=== PATIENT | male | born 1985 | race African-American/Black ===

== ENCOUNTER 2024-07-05 18:56 | Inpatient (IN) | payer BC, OTHER ==
--- OUTSIDE RECORDS SUMMARY | 2024-07-05 18:58 | XMS REPORT | Continuity of Care Document ---
Author Name Unknown Address [address] [facility] [address] [place] [address] [facility] Address [address] [facility] 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 Name Role Phone No, PCP Attending Clinician Unavailable Linda Alcocer Attending Clinician Monica vailable Physician, No Primary or Family Admitting Clinic carolyn Unavailable Payers Payer Name Policy Type Policy Number Effective Date Expirati on Date Source [employer]IG[employer] 53 [id number] [facility] Problems Condition Name Condition Details Condition Category Status Onset Date Resolution Date Last Treatment Date Treating Clinician Comments Source [id number] Type 2 diabetes mellitus with hyperglyce keri, without long-term current use of insulin Problem [facility] [id number] Essential (primary) hypertensi on Problem [facility] [id number] Mixed hyperlipid emia Problem [facility] Hyperglyce keri due to type 2 diabetes mellitus Type 2 diabetes mellitus with hyperglyce keri Problem [facility] Allergies, Adverse Reactions, Alerts Allergy Name Allergy Type Status Severity Reaction(s) Onset Date Inactive Date Treating Clinician Comments Source No Known Allergie s DA Active U 08-03 00:00: 00 [facility] Social History Social Habit Start Date Stop Date Quantity Comments Source History of Tobacco Use Current Smoker [facility] Sex Assigned At [facility] Smoking Status Start Date Stop Date Source Current Smoker 2024-02-05 00:00:00 [facility] Medications Ordered Medication Name Filled Medication Name Start Date Stop Date Current Medication? Ordering Clinician Indication Dosage Frequency Signature (SIG) Comments Components Source Lisinopril 40 MG Lisinopril 40 MG 02-05 00:00: 00 No 1{table t} QD Lisinopril 40 MG Blood Glucose Monitor System w/Device Blood Glucose Monitor System w/Device 12-22 00:00: 00 No Blood Glucose Monitor System w/Device Blood Glucose Test Strips 333 - Blood Glucose Test Strips 333 - 3-0 12-22 00:00: 00 No TID Blood Glucose Test Strips 333 - metFORMIN HCl 500 MG metFORMIN HCl 500 MG 12-22 00:00: 00 No 1{table t_with_ a_meal} BID metFORMIN HCl 500 MG Lancets - Lancets - 12-22 00:00: 00 No Lancets - Lisinopril 10 MG Lisinopril 10 MG No 1{table t} QD Lisinopril 10 MG Lisinopril- hydroCHLORO thiazide 20-12.5 MG Lisinopril- hydroCHLORO thiazide 20-12.5 MG No 1{table t} QD Lisinopril -hydroCHLO ROthiazide 20-12.5 MG metFORMIN HCl ER 500 MG metFORMIN HCl ER 500 MG No 1{table t_with_ evening _meal} QD metFORMIN HCl ER 500 MG Vital Signs Vital Name Observation Time Observation Value Comments S ource height 2024-02-06 13:15:00 65 [in_i] [facility] weight-kg 2024-02-06 13:15:00 80.74 kg [facility] bmi 2024-02-06 13:15:00 29.62 kg/m2 Elisa r [facility] temperature 2024-02-06 13:15:00 98.8 [degF] [facility] respiratory rate 2024-02-06 13:15:00 16 /min [facility] heart rate 2024-02-06 13:15:00 52 /min [facility] blood pressure systolic 2024-02-06 13:15:00 140 mm[Hg] [facility] blood pressure diastolic 2024-02-06 13:15:00 80 mm[Hg] [facility] height 2024-01-10 13:30:00 65 [in_i] [facility] weight-kg 2024-01-10 13:30:00 81.83 kg [facility] bmi 2024-01-10 13:30:00 30.02 kg/m2 Elisa r [facility] temperature 2024-01-10 13:30:00 99.7 [degF] [facility]ram [facility] respiratory rate 2024-01-10 13:30:00 16 /min [facility] heart rate 2024-01-10 13:30:00 109 /min [facility] blood pressure systolic 2024-01-10 13:30:00 158 mm[Hg] [facility] diastolic 2024-01-10 13:30:00 96 mm[Hg] [facility] Encounters Start Date/Time End Date/Time Encounter Type Admission Type Attending [facility] Care Department Encounter ID Source 2024-05-20 00:33:00 Outpatient No, PCP CLS [facility] [id number] [facility] 2024-04-23 10:22:01 Outpatient No, PCP CLS CLS [id number] [facility] 2024-01-10 13:37:01 Outpatient No, PCP CLS [facility] [id number] [facility] 2024-02-06 00:00:00 2024-02-06 00:00:00 Office Visit- Est Pt.- Level 4 CLS CLS [id number] [facility] 2024-01-26 00:00:00 2024-01-26 00:00:00 Office Visit- Est Pt.- Level 4 CLS CLS [id number] [facility] 2024-01-26 00:00:00 2024-01-26 00:00:00 (TEL) CLS CLS [id number] [facility] 2024-01-10 00:00:00 2024-01-10 00:00:00 Office Visit- Est Pt.- Level 4 CLS CLS [id number] [facility] 2023-08-03 10:29:00 2023-08-03 12:17:00 Emergency EM Linda Alcocer [facility] SID [id number] [facility] Results Test Description Test Time Test Comments Results Result Co mments Source UA RFLX MICR CULT IF [id number] 11:43:00* Test Item Value Reference Range Interpretation Comme nts UA COLOR (test code = COLU) MEME YEL/STRAW A UA APPEARANCE (test code = APPU) SL CLOUDY CLEAR UA GLUCOSE DIPSTICK (test co de = DGLUU) 1+ NEGATIVE A UA BILIRUBIN DIPSTICK (test code = BILU) NEGATIVE NEGATIVE UA KETONE DIPSTICK (test cod e = KETU) 1+ NEGATIVE A UA SPECIFIC GRAVITY (test co de = SGU) 1.032 1.005-1.030 H UA BLOOD DIPSTICK (test code = PEG) NEGATIVE NEGATIVE UA PH DIPSTICK (test code = ANNABELLA) 5.0 5.0-7.0 N UA PROTEIN DIPSTICK (test co de = PROU) 3+ NEGATIVE A UA UROBILINIOGEN DIPSTICK (t est code = URO) 2.0 mg/dL 0.2-1.0 A UA NITRITE DIPSTICK (test co de = JORDON) NEGATIVE NEGATIVE UA LEUKOCYTE ESTERASE DIPSTI CK (test code = LEUU) NEGATIVE NEGATIVE UA WBC (test code = WBCU) 0-3 WBC/HPF 0-3 UA RBC (test code = RBCU) 0-3 RBC/HPF 0-3 UA WBC NO REFLEX (test code = WBCUCL) 0-3 WBC/HPF 0-3 UA BACTERIA (test code = BACU) TRACE /HPF NONE SEEN UA SQUAMOUS CELLS (test code = SQU) 6-10 /HPF NONE SEEN A UA HYALINE CAST (test code = HYALU) 11-20 /LPF NONE SEEN UA MUCUS (test code = MUCU) 4+ /LPF NONE SEEN A Indication for culture: RiskForSepsis-no oth srcSpecimen Description: MID STREAM COVID 19 INHOUSE [id number] 11:37:00* Test Item Value Reference Range Interpretation Comme nts COVID 19 INHOUSE AG (test code = [id number]) POSITIVE Negative A A negative result is presumptive and should be confirmedwith an FDA authorized molecular assay, if necessary forpatient management.A positive result does not rule out co-infections withother pathogens.This test detects both viable (live) and non-viable,SARS-CoV, and SARS-CoV-2. Test performance depends on theamount of virus (antigen) in the sample.This test has not been FDA cleared or approved; the test hasbeen authorized by FDA under an Emergency Use Authorization(EUA) for use by laboratories certified under the CLIA thatmeet the requirements to perform moderate, high or waivedcomplexity tests. COMPREHENSIVE METABOLIC [id number] 11:34:00* Test Item Value Reference Range Interpretation Comme nts SODIUM (test code = NA) 138 mEq/L 134-147 N POTASSIUM (test code = K) 3.8 mEq/L 3.4-5.0 N CHLORIDE (test code = CL) 93 mEq/L 100-108 L CARBON DIOXIDE (test code = CO2) 29 mEq/l 21-33 N ANION GAP (test code = GAP) 20 0-20 N GLUCOSE (test code = GLU) 209 mg/dL 77-141 H BLOOD UREA NITROGEN (test code = BUN) 19 mg/dL 7-25 N GLOMERULAR FILTRATION RATE (test code = GFR) 66.8 105-110 L The Glomerular Filtration Rate is a calculated parameterbased on serum Creatinine, patient age and sex. GFR valuesless than 60 mL/min/1.73 square meters are indicative ofChronic Kidney Disease. Values less than 15 mL/min/1.73square meters indicate Kidney failure. The calculation forGFR is based on the CKD-EPI (202) calculation. This formulais race indifferent and is the recommended formula for GFRby the National Kidney Foundation for Adults.The GFR will not calculate if the sex is unknown or if thepatient's age is <18 years. CREATININE (test code = CREAT) 1.4 mg/dL 0.6-1.3 H TOTAL PROTEIN (test code = PROT) 8.4 g/dL 6.4-8.2 H ALBUMIN (test code = ALB) 4.80 g/dL 3.4-5.0 N CALCIUM (test code = CA) 9.9 mg/dL 8.0-10.5 N BILIRUBIN TOTAL (test code = BILT) 1.50 mg/dL 0.0-1.0 H SGOT/AST (test code = AST) 26 IUnit/L 8-34 N SGPT/ALT (test code = ALT) 21 IUnit/L 10-49 N ALKALINE PHOSPHATASE TOTAL (test code = ALKP) 62 IUnit/L 20-125 N CBC W/AUTO [id number] 11:20:00* Test Item Value Reference Range Interpretation Comme nts WHITE BLOOD CELL (test code = WBC) 6.0 x10 3/uL 4.5-11.0 N RED BLOOD CELL (test code = RBC) 6.52 x10 6/uL 4.00-5.60 H HEMOGLOBIN (test code = HGB) 21.3 g/dL 12.5-16.9 H HEMATOCRIT (test code = HCT) 60.4 % 37.5-50.7 H MEAN CELL VOLUME (test code = MCV) 92.6 fL 81.0-99.0 N MEAN CELL HGB (test code = MCH) 32.7 pg 27.0-33.0 N MEAN CELL HGB CONCETRATION (test code = MCHC) 35.3 g/dL 33.0-37.0 N RED CELL DISTRIBUTION WIDTH CV (test code = RDW) 13.3 % 11.5-14.5 N RED CELL DISTRIBUTION WIDTH SD (test code = RDW-SD) 44.2 fL 37.0-54.0 N PLATELET COUNT (test code = PLT) 203 x10 3/uL 150-400 N MEAN PLATELET VOLUME (test c ode = MPV) 9.5 fL 7.0-9.0 H NEUTROPHIL % (test code = NT%) 66.0 % 56.0-77.0 N IMMATURE GRANULOCYTE % (test code = IG%) 0.3 % 0.0-2.0 N LYMPHOCYTE % (test code = LY%) 18.4 % 14.0-32.0 N MONOCYTE % (test code = MO%) 12.2 % 4.8-9.0 H EOSINOPHIL % (test code = EO%) 2.8 % 0.3-3.7 N BASOPHIL % (test code = BA%) 0.3 % 0.0-2.0 N NUCLEATED RBC % (test code = NRBC%) 0.0 % 0-0 N NEUTROPHIL # (test code = NT#) 3.93 x10 3/uL 2.0-7.6 N IMMATURE GRANULOCYTE # (test code = IG#) 0.02 x10 3/uL 0.00-0.03 N LYMPHOCYTE # (test code = LY#) 1.10 x10 3/uL 1.0-3.8 N MONOCYTE # (test code = MO#) 0.73 x10 3/uL 0.1-0.8 N EOSINOPHIL # (test code = EO#) 0.17 x10 3/uL 0.0-0.2 N BASOPHIL # (test code = BA#) 0.02 x10 3/uL 0.0-0.2 N NUCLEATED RBC # (test code = NRBC#) 0.00 x10 3/uL 0.0-0.1 N
[2024-07-05] MEDS ORDERED: NA CHLORIDE 0.9% 1,000 ML ONE ×2 (19:42→20:34)
[2024-07-05] MEDS ORDERED: ONDANSETRON 4 MG/2 ML VIAL ONE (19:42)
[2024-07-05 19:47] LABS: Absolute Lymphocytes (CBC) 0.6 K/uL (0.7-4.9); Absolute Monocytes 1.3 K/uL (0.1-1.3); Absolute Neutrophil 13.9 K/uL (1.8-8.0); Basophils % 0.2 % (0-1.3); Eosinophils % 0.1 % (0-4.4); Hematocrit 51.8 % (39.6-49.0); Hemoglobin 17.1 g/dL (13.6-17.9); Lymphocytes % 3.7 % (15.3-44.8); MCH 32.5 pg (27.0-35.0); MCHC 33.1 g/dL (32.0-36.0); MCV 98.1 fL (80-100); Monocytes % 8.2 % (3.3-12.3); Neutrophils % 87.8 % (41.7-73.7); Nucleated Red Blood Cells % 0.1 % (0-0); Platelets 334 thou/uL (152-406); RBC Red Blood Cell Count 5.28 M/uL (4.33-5.43); Red Cell Distribution Width 13.7 % (12.1-15.2)
[2024-07-05 19:58] LABS: Specific Gravity > 1.030 (1.005-1.030); Sqamous Epithelial None Seen /HPF (None Seen); Urine Bacteria None Seen /HPF (<20); Urine Bilirubin NEGATIVE (Negative); Urine Blood 2+ (Negative); Urine Clarity Clear (Clear); Urine Color Colorless (Yellow); Urine Culture Reflex Order NOT NEEDED; Urine Glucose 4+ (Over) (Negative); Urine Ketones TRACE (Negative); Urine Microscopic Reflex YN ORDER UMIC; Urine Mucus Slight /HPF (None Seen); Urine Nitrite NEGATIVE (Negative); Urine Protein NEGATIVE (Negative); Urine RBC <5 /HPF (None Seen); Urine Urobilinogen Normal (Normal); Urine WBC <5 /HPF (<5)
[2024-07-05 20:02] LABS: PT Prothrombin Time 10.8 SECONDS (9.4-12.5); PTT, Activated Partial Thromb 26.4 SECONDS (24.3-36.9); Protime INR 1.03
[2024-07-05 20:05] LABS: Albumin 3.9 g/dL (3.4-5.0); Albumin/Globulin Ratio 0.9 (1.1-1.8); Anion Gap 20.5 mEq/L (5.0-15.0); Bilirubin Direct 0.2 mg/dL (0-0.2); Bilirubin Indirect, Calculated 0.7 mg/dL (0.2-0.8); Bilirubin Total 0.9 mg/dL (0.2-1.0); Globulin 4.2 g/dL (2.3-3.5); Magnesium 3.2 mg/dL (1.6-2.4); Potassium 5.5 mEq/L (3.5-5.1); Protein, Total 8.1 g/dL (6.4-8.2); Troponin High Sensitivity 63.1 pg/mL (<58.9)
[2024-07-05 20:08] LABS: SARS-CoV-2 Antigen CONTROL BLUE LINE VIS/BG OK; SARS-CoV-2 Antigen Rapid Res Negative (Negative)
--- NOTE | 2024-07-05 20:11 | RAD REPORT ---
Procedure: Chest Single View HISTORY: Cough COMPARISON: none FINDINGS: The lungs appear clear of acute infiltrate. No significant pleural effusion noted. The heart is normal size. IMPRESSION: No acute abnormality is displayed.
[2024-07-05] MEDS ORDERED: INSULIN REGULAR (HUMAN) 100 UNIT/ML ONE (20:33)
[2024-07-05] MEDS ORDERED: NA CHLORIDE 0.9% 100 ML ONE (20:34)
[2024-07-05] MEDS ORDERED: D50W 25 GM/50 ML SYRINGE IV PRN (20:45)
[2024-07-05] MEDS ORDERED: GLUCAGON 1 MG/VIAL IM PRN (20:45)
[2024-07-05] MEDS: CEFTRIAXONE 1,000 MG in NA CHLORIDE 0.9% 50 ML IVPB SCH (20:47)
--- NOTE | 2024-07-05 20:52 | P.HP ---
Certification for Inpatient With expected LOS: >2 Midnights Practitioner: I am a practitioner with admitting privileges, knowledge of patient current condition, hospital course, and medical plan of care. 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 - Past Medical/Surgical History -: Diabetes -: Hypertension Past Surgical History: Reviewed- Non-Contributory - Social History Smoking Status: Never smoker Review of Systems 10-point ROS is otherwise unremarkable General: Weakness Gastrointestinal: Nausea, Vomiting Physical Examination - Vital Signs Temperature: 97.5 F Blood Pressure: 141/105 Pulse: 126 Respirations: 14 Pulse Ox (%): 99 - Physical Exam General: Delirious HEENT: Atraumatic Neck: Supple Respiratory: Clear to auscultation bilaterally Cardiovascular: No edema, Regular rate/rhythm, Normal S1 S2 Gastrointestinal: Normal bowel sounds, Soft and benign Musculoskeletal: No clubbing, No swelling Integumentary: No rashes, No breakdown Neurological: Abnormal speech - Studies Laboratory Data (last 24 hrs) 07/05/24 07/05/24 07/05/24 19:30 19:30 19:30 WBC 15.80 H Hgb 17.1 Hct 51.8 H Plt Count 334 PT 10.8 INR 1.03 APTT 26.4 Sodium 127 L Potassium 5.5 H BUN 39 H Creatinine 2.40 H Glucose 1408 H* Magnesium 3.2 H Total Bilirubin 0.9 AST 30 ALT 29 Alkaline Phosphatase 114 Microbiology Data (last 24 hrs): 07/05/24 19:27 Nasopharnyx Influenza Type A Antigen Screen - Final 07/05/24 19:27 Nasopharnyx Influenza Type B Antigen Screen - Final Assessment and Plan - Problems (Diagnosis) (1) Hyperosmolar hyperglycemic state (HHS) Current Visit: Yes Status: Acute Plan: Patient is 38 years of age with a history of diabetes does not take any medication admitted with a hyperosmolar state with renal insufficiency hemoconcentration glucose over 1400 white count is also elevated chest x-ray is negative beta-hydroxybutyrate is positive urinalysis positive for glucose positive for ketones although his bicarbonate is normal we will plan to admit start on IV fluids normal saline to 50 cc an hour in addition to an insulin drip antibiotics continue to monitor check blood sugars every 2 hours chest x-ray is negative - Advance Directives Does patient have a Living Will: No Does patient have a Durable POA for Healthcare: No
[2024-07-05] MEDS: NA CHLORIDE 0.9% 1,000 ML IV SCH (21:00)
[2024-07-05] MEDS ORDERED: INSULIN REGULAR, HUMAN 100 UNIT in NA CHLORIDE 0.9% 100 ML IV SCH (21:00)
--- NOTE | 2024-07-05 21:06 | ER ---
Nurse's Notes [facility] Name: Enrique Hollis Age: 38 yrs Sex: Male : 1985 Arrival Date: 07/05/2024 Time: 18:56 Bed 5 Private MD: Diagnosis: Hyperglycemia, unspecified-dka vs hhs;Acute kidney failure, unspecified;Hyperkalemia;Weakness;Nausea with vomiting, unspecified Presentation: 07/05 19:00 Chief complaint: Patient states: lethargic, vomiting for approx 1 week, lightheaded. br2 per ems blood sugar "HI". Coronavirus screen: Client denies travel out of the [place] in the last 14 days. Ebola Screen: Patient denies exposure to infectious person. Initial Sepsis Screen: Does the patient meet any 2 criteria? HR > 90 bpm. No. Patient's initial sepsis screen is negative. Does the patient have a suspected source of infection? No. Patient's initial sepsis screen is negative. Risk Assessment: Do you want to hurt yourself or someone else? Patient reports no desire to harm self or others. Onset of symptoms was July 05, 2024 at 18:00. 19:00 Method Of Arrival: EMS: [facility] br2 19:00 Acuity: CLARITZA 3 br2 Triage Assessment: 19:00 General: Appears in no apparent distress. comfortable, Behavior is calm, cooperative. br2 Pain: Denies pain. EENT: No signs and/or symptoms were reported regarding the EENT system. Neuro: Gimenez Agitation-Sedation Scale (RASS): -1 Drowsy Level of Consciousness is awake, alert, obeys commands, lethargic, Oriented to person, place, time, situation. Cardiovascular: Capillary refill < 3 seconds. Respiratory: Airway is patent Respiratory effort is even, unlabored, Respiratory pattern is regular, symmetrical. GI: Reports vomiting. : No signs and/or symptoms were reported regarding the genitourinary system. Derm: No signs and/or symptoms reported regarding the dermatologic system. Musculoskeletal: Circulation, motion, and sensation intact. Capillary refill < 3 seconds, Range of motion: intact in all extremities. Historical: - Allergies: 19:37 No Known Allergies; br2 - PMHx: 19:37 Hypertensive disorder; Diabetes mellitus; br2 - Immunization history:: Adult Immunizations up to date. - Infectious Disease History:: Denies. - Social history:: Smoking status: Patient reports the use of cigarette tobacco products, smokes one pack cigarettes per day. Patient uses alcohol, on a daily basis. "two fingers height" of whiskey. Screenin:00 [facility] ED Fall Risk Assessment (Adult) History of falling in the last 3 months, br2 including since admission No falls in past 3 months (0 pts) Confusion or Disorientation No (0 pts) Intoxicated or Sedated No (0 pts) Impaired Gait No (0 pts) Mobility Assist Device Used No (0 pt) Altered Elimination No (0 pt) Score/Fall Risk Level 0 - 2 = Low Risk Oriented to surroundings. Abuse screen: Denies threats or abuse. Denies injuries from another. Nutritional screening: No deficits noted. Tuberculosis screening: Assessment: 19:00 Reassessment: SEE TRIAGE ASSESSMENT. br2 19:00 General: Appears in no apparent distress. comfortable, Behavior is calm, cooperative. br2 Pain: Denies pain. Neuro: Gimenez Agitation-Sedation Scale (RASS): 0 - Alert and Calm Level of Consciousness is awake, alert, obeys commands, Oriented to person, place, time, situation. Cardiovascular: Capillary refill < 3 seconds. Respiratory: Airway is patent Respiratory effort is even, unlabored, Respiratory pattern is regular, symmetrical. GI: Reports nausea, vomiting. : No signs and/or symptoms were reported regarding the genitourinary system. EENT: No signs and/or symptoms were reported regarding the EENT system. Derm: No signs and/or symptoms reported regarding the dermatologic system. Musculoskeletal: No signs and/or symptoms reported regarding the musculoskeletal system. 20:30 Reassessment: Patient and/or family updated on plan of care and expected duration. Pain br2 level reassessed. Patient is alert, oriented x 3, equal unlabored respirations, skin warm/dry/pink. FAMILY AT BEDSIDE, NO C/O AT THIS TIME. 22:00 Reassessment: Patient and/or family updated on plan of care and expected duration. Pain br2 level reassessed. Patient is alert, oriented x 3, equal unlabored respirations, skin warm/dry/pink. Patient states feeling better. 23:30 Reassessment: Patient and/or family updated on plan of care and expected duration. Pain br2 level reassessed. Patient is alert, oriented x 3, equal unlabored respirations, skin warm/dry/pink. Patient states feeling better. 07/06 00:45 Reassessment: Patient and/or family updated on plan of care and expected duration. Pain br2 level reassessed. Patient is alert, oriented x 3, equal unlabored respirations, skin warm/dry/pink. PT HAS PULLED OUT BOTH IV'S AND IS LAYING IN BED NAKED. PT STATE HE PULLED THEM OUT. PT DID ALLOW ME TO START NEW IV'S. Vital Signs: 07/05 19:00 BP 141 / 105; Pulse 126; Resp 18 S; Temp 97.5; Pulse Ox 99% on R/A; Weight 81.65 kg; br2 Height 5 ft. 10 in. ; Pain 0/10; 20:30 BP 128 / 93; Pulse 128; Resp 18; Pulse Ox 98% on R/A; br2 22:13 Pulse 129; Resp 18; Pulse Ox 97% on R/A; Pain 0/10; br2 23:00 BP 140 / 94; Pulse 128; Resp 18; Pulse Ox 98% ; br2 07/06 01:00 BP 139 / 105; Pulse 129; Resp 18; Pulse Ox 97% on R/A; br2 07/05 19:00 Body Mass Index 25.83 (81.65 kg, 177.8 cm) br2 07/05 19:00 Pain Scale: Adult br2 22:13 Pain Scale: Adult br2 ED Course: 07/05 18:57 Patient arrived in ED. ap3 19:00 Inserted saline lock: 18 gauge in right antecubital area, using aseptic technique. br2 Blood collected. Flushed with 10 mL NS. 19:00 Allergy band placed. Placed in gown. Bed in low position. Call light in reach. Side br2 rails up X 1. Provided Education on: PLAN OF CARE. 19:00 Arm band placed on right wrist. br2 19:11 Holly Moreno FNP-C is [facility]. kb 19:11 Pastor Kovacs MD is Attending Physician. kb 19:28 SARS-COV-2 Antigen Rapid Sent. mm11 19:28 Flu Sent. mm11 19:28 Basic Metabolic Panel Sent. mm11 19:28 CBC with Diff Sent. mm11 19:28 Hepatic Function Sent. mm11 19:28 Magnesium Sent. mm11 19:28 Protime (+inr) Sent. mm11 19:28 Ptt, Activated Sent. mm11 19:28 Troponin High Sensitivity Sent. mm11 19:37 Triage completed. br2 19:43 EKG done, by ED staff, reviewed by Holly ALFORD. sa1 19:46 Urinalysis w/ reflexes Sent. br2 19:59 Lakeisha Schaefer, RN is Primary Nurse. br2 20:07 Chest Single View XRAY In Process Unspecified. EDMS 20:32 Osmolality, Serum Sent. sa1 21:00 Inserted saline lock: 20 gauge in left hand, using aseptic technique. br2 21:06 Sal Gtz MD is Hospitalizing Provider. kb 07/06 00:45 IV discontinued, PT PULLED OUT BOTH IV'S. br2 00:50 Inserted saline lock: 20 gauge in right antecubital area, using aseptic technique. br2 00:50 Inserted saline lock: 20 gauge in left antecubital area, using aseptic technique. br2 01:07 Blood Culture Sent. ha1 01:08 Comprehensive Metabolic Panel Sent. ha1 01:30 No provider procedures requiring assistance completed. br2 Administered Medications: 07/05 19:46 Drug: NS 0.9% IV 1000 ml IV at 1000 ml once; to be given as a bolus over 60 minutes br2 Route: IV; Rate: 1000 ml; Site: right antecubital; 20:45 Follow up: Response: No adverse reaction; IV Status: Completed infusion; IV Intake: br2 1000ml 19:46 Drug: Ondansetron IVP 4 mg IVP once; over 2 minutes Route: IVP; Site: left antecubital; br2 19:48 Follow up: Response: No adverse reaction br2 20:43 Drug: Insulin Drip - (Insulin Regular Human IVP 100 units, NS 0.9% IV 100 ml) IV at br2 calculated rate continuous; Standard concentration 1unit/ml; Dose for DKA is 0.1 units/kg/hr {Co-Signature: al5 (Tg Garcia RN).} Route: IV; Rate: calculated rate; Site: right antecubital; 07/06 01:30 Follow up: Response: No adverse reaction; IV Intake: 32ml br2 01:30 Follow up: IV Status: Infusion continued upon admission br2 07/05 20:44 Drug: NS 0.9% IV 1000 ml IV at 1000 ml once; to be given as a bolus over 60 minutes br2 Route: IV; Rate: 1000 ml; Site: right antecubital; 21:45 Follow up: Response: No adverse reaction; IV Status: Completed infusion; IV Intake: br2 1000ml Medication: 07/06 01:30 VIS not applicable for this client. br2 Intake: 07/05 20:45 IV: 1000ml; Total: 1000ml. br2 21:45 IV: 1000ml; Total: 2000ml. br2 07/06 01:30 IV: 32ml; Total: 2032ml. br2 Outcome: 07/05 21:06 Decision to Hospitalize by Provider. 07/06 01:30 Admitted to ICU accompanied by nurse, via stretcher, room 4, Report called to elizabeth RODRIGUEZ RN 01:30 Condition: stable br2 01:30 Instructed on the need for admit, Demonstrated understanding of instructions, 01:31 Patient left the ED. br2 Signatures: Dispatcher [employer] EDHolly Robbins, BEAD FLIPPER-C BEAD FLIPPER-Ckb Tg Castaneda RN RN ap3 Roberta Reagan RN RN ha1 Sultan Connor sa1 Lakeisha Schaefer RN RN br2 umair wilson mm11 Tg Garcia RN al5 Corrections: (The following items were deleted from the chart) 02:42 02:41 IV Status: Infusion continued upon admission br2 br2
--- NOTE | 2024-07-05 21:06 | EDPHYS ---
Physician Documentation [facility] Name: Enrique Hollis Age: 38 yrs Sex: Male : 1985 Arrival Date: 07/05/2024 Time: 18:56 Bed 5 Private MD: ED Physician Pastor Kovacs HPI: 07/05 23:18 This 38 yrs old Black Male presents to ER via EMS with complaints of vomiting, weakness.kb 23:18 Pt is a 38 year old male who presents for nausea and vomiting that started 8 days ago kb with weakness and lightheadedness that started today. EMS reports sugar read "HI" Pt states he used to take metformin for diabetes but it never really worked so he stopped taking is months ago. Historical: - Allergies: 19:37 No Known Allergies; br2 - PMHx: 19:37 Hypertensive disorder; Diabetes mellitus; br2 - Immunization history:: Adult Immunizations up to date. - Infectious Disease History:: Denies. - Social history:: Smoking status: Patient reports the use of cigarette tobacco products, smokes one pack cigarettes per day. Patient uses alcohol, on a daily basis. "two fingers height" of whiskey. ROS: 23:03 Constitutional: As per HPI kb Exam: 23:03 Constitutional: This is a well developed, well nourished patient who is awake, alert, kb and in no acute distress. Head/Face: Normocephalic, atraumatic. ENT: Moist Mucous membranes Respiratory: Respirations even and unlabored. No increased work of breathing. Talking in full sentences Abdomen/GI: Soft, non-tender. No distention Skin: Warm, dry with normal turgor. Normal color. MS/ Extremity: Pulses equal, no cyanosis. Neurovascular intact. Full, normal range of motion. Neuro: Awake and alert, GCS 15, oriented to person, place, time, and situation. 23:03 Cardiovascular: Rate: tachycardic, 23:03 ECG was reviewed by the Attending Physician. Vital Signs: 19:00 BP 141 / 105; Pulse 126; Resp 18 S; Temp 97.5; Pulse Ox 99% on R/A; Weight 81.65 kg; br2 Height 5 ft. 10 in. ; Pain 0/10; 20:30 BP 128 / 93; Pulse 128; Resp 18; Pulse Ox 98% on R/A; br2 22:13 Pulse 129; Resp 18; Pulse Ox 97% on R/A; Pain 0/10; br2 23:00 BP 140 / 94; Pulse 128; Resp 18; Pulse Ox 98% ; br2 07/06 01:00 BP 139 / 105; Pulse 129; Resp 18; Pulse Ox 97% on R/A; br2 07/05 19:00 Body Mass Index 25.83 (81.65 kg, 177.8 cm) br2 07/05 19:00 Pain Scale: Adult br2 22:13 Pain Scale: Adult br2 MDM: 07/05 19:11 Medical Screening Exam initiated kb 23:16 Differential diagnosis: viral gastroenteritis, dehydration, acute renal failure, kb abnormal electrolytes, DKA, HHS. Data reviewed: vital signs, nurses notes. Consideration of Admission/Observation Patient was admitted/placed on observation. Escalation of care including admission/observation considered. Management of patient was discussed with the following: Hospitalist: Dr Gtz accepts pt for admission. Historians other than the Patient: EMS: [facility]. Counseling: I had a detailed discussion with the patient and/or guardian regarding the historical points, exam findings, and any diagnostic results supporting the discharge/admit diagnosis, lab results, radiology results, the need for further work-up and treatment in the hospital. 07/06 00:31 ED course: Pt has no source of infection at time of admission. kb 07/05 19:17 Order name: Basic Metabolic Panel; Complete Time: 20:08 kb 07/05 19:17 Order name: CBC with Diff; Complete Time: 21:38 kb 07/05 19:17 Order name: Hepatic Function; Complete Time: 20:08 kb 07/05 19:17 Order name: Magnesium; Complete Time: 20:08 kb 07/05 19:17 Order name: Protime (+inr); Complete Time: 20:07 kb 07/05 19:17 Order name: Ptt, Activated; Complete Time: 20:07 kb 07/05 19:17 Order name: Troponin High Sensitivity; Complete Time: 20:08 kb 07/05 19:17 Order name: Urinalysis w/ reflexes; Complete Time: 19:59 kb 07/05 19:17 Order name: Flu; Complete Time: 20:08 kb 07/05 19:17 Order name: SARS-COV-2 Antigen Rapid; Complete Time: 20:08 kb 07/05 20:10 Order name: Urine Sodium Random; Complete Time: 20:46 [facility] 07/05 20:10 Order name: Urine Osmolality; Complete Time: 21:16 [facility] 07/05 20:10 Order name: Osmolality, Serum; Complete Time: 21:16 [facility] 07/05 20:14 Order name: ABG 07/05 20:14 Order name: BETA HYDROXYBUTYRATE; Complete Time: 20:43 kb 07/05 20:48 Order name: Basic Metabolic Panel [facility] 07/05 20:48 Order name: Comprehensive Metabolic Panel [facility] 07/05 20:49 Order name: Blood Culture [facility] 07/05 21:38 Order name: CBC Smear Scan; Complete Time: 21:38 [facility] 07/05 23:13 Order name: Glucose, Ancillary Testing; Complete Time: 23:13 [facility] 07/05 19:17 Order name: Chest Single View XRAY; Complete Time: 20:13 kb 07/05 19:17 Order name: EKG; Complete Time: 19:18 kb 07/05 19:17 Order name: Cardiac monitoring; Complete Time: 19:46 kb 07/05 19:17 Order name: EKG - Nurse/Tech; Complete Time: 19:46 kb 07/05 19:17 Order name: IV Saline Lock; Complete Time: 19:46 kb 07/05 19:17 Order name: Labs collected and sent; Complete Time: 19:46 kb 07/05 19:17 Order name: NPO; Complete Time: 19:46 kb 07/05 19:17 Order name: O2 Per Protocol; Complete Time: 19:46 kb 07/05 19:17 Order name: O2 Sat Monitoring; Complete Time: 19:46 kb EC/24 23:03 Rate is 126 beats/min. Rhythm is regular. QRS [place] is Normal. NM interval is normal at kb 118 msec. QRS interval is normal at 74 msec. QT interval is normal at 472 msec. Administered Medications: 19:46 Drug: NS 0.9% IV 1000 ml IV at 1000 ml once; to be given as a bolus over 60 minutes br2 Route: IV; Rate: 1000 ml; Site: right antecubital; 20:45 Follow up: Response: No adverse reaction; IV Status: Completed infusion; IV Intake: br2 1000ml 19:46 Drug: Ondansetron IVP 4 mg IVP once; over 2 minutes Route: IVP; Site: left antecubital; br2 19:48 Follow up: Response: No adverse reaction br2 20:43 Drug: Insulin Drip - (Insulin Regular Human IVP 100 units, NS 0.9% IV 100 ml) IV at br2 calculated rate continuous; Standard concentration 1unit/ml; Dose for DKA is 0.1 units/kg/hr {Co-Signature: al5 (Tg Garcia RN).} Route: IV; Rate: calculated rate; Site: right antecubital; 07/06 01:30 Follow up: Response: No adverse reaction; IV Intake: 32ml br2 01:30 Follow up: IV Status: Infusion continued upon admission br2 07/05 20:44 Drug: NS 0.9% IV 1000 ml IV at 1000 ml once; to be given as a bolus over 60 minutes br2 Route: IV; Rate: 1000 ml; Site: right antecubital; 21:45 Follow up: Response: No adverse reaction; IV Status: Completed infusion; IV Intake: br2 1000ml Disposition Summary: 07/05/24 21:06 Hospitalization Ordered Notes: Hospitalization Status: Inpatient Admission kb Provider: Sal Gtz Location: Intensive Care Unit kb Condition: Fair kb Problem: new kb Symptoms: are unchanged kb Bed/Room Type: Standard Room Assignment: 4-(07/05/24 22:23) kl Diagnosis - Acute kidney failure, unspecified kb - Hyperglycemia, unspecified - dka vs hhs(07/05/24 21:07) kb - Hyperkalemia kb - Weakness kb - Nausea with vomiting, unspecified kb Forms: - Medication Reconciliation Form kb - SBAR form kb - Leadership Thank You Letter kb Critical care time excluding procedures: 21:08 Critical care time: Bedside Care: 10 minutes, Consultation: 10 minutes, Family kb Intervention: 10 minutes. Total time: 30 minutes Signatures: Dispatcher [employer] SHUNHI Holly Moreno FNP-C FNP-Marilu Maher RN Lakeisha Marcano RN RN br2 Tg Garcia RN al5 Corrections: (The following items were deleted from the chart) 20:15 20:15 BETA HYDROXYBUTYRATE+C.LAB.BRZ ordered. [facility] SHUNMS 21: 21:06 Hyperglycemia, unspecified kb kb 22:23 21:06 kb kl
[2024-07-05 21:37] LABS: Blood Morphology Comment NOT SEEN (NOT SEEN); Platelet Estimate ADEQ; White Blood Cell Scan OK (OK)
[2024-07-06 01:42] VITALS: BMI 22.4
[2024-07-06 01:51] LABS: Albumin 3.6 g/dL (3.4-5.0); Albumin/Globulin Ratio 0.9 (1.1-1.8); Anion Gap 12.1 mEq/L (5.0-15.0); Bilirubin Total 0.6 mg/dL (0.2-1.0); Globulin 3.9 g/dL (2.3-3.5); Potassium 4.1 mEq/L (3.5-5.1); Protein, Total 7.5 g/dL (6.4-8.2)
[2024-07-06 01:55] VITALS: O2SAT 95
[2024-07-06] MEDS ORDERED: D10W 125 ML IV PRN ×2 (01:56→08:18)
[2024-07-06] MEDS: INSULIN GLARGINE 100 UNIT/ML SQ ONE (07:34)
[2024-07-06 08:02] LABS: Anion Gap 8.7 mEq/L (5.0-15.0)
[2024-07-06 08:05] LABS: Potassium 4.7 mEq/L (3.5-5.1)
[2024-07-06] MEDS ORDERED: GLUCAGON 1 MG/VIAL IM PRN (08:18)
[2024-07-06 08:29] LABS: Absolute Basophils 0.1 K/uL (0-0.5); Absolute Eosinophils 0.2 K/uL (0-0.5); Absolute Lymphocytes (CBC) 1.6 K/uL (0.7-4.9); Absolute Monocytes 3.4 K/uL (0.1-1.3); Absolute Neutrophil 15.2 K/uL (1.8-8.0); Basophils % 0.4 % (0-1.3); Eosinophils % 0.9 % (0-4.4); Hematocrit 48.2 % (39.6-49.0); Hemoglobin 16.6 g/dL (13.6-17.9); Lymphocytes % 7.7 % (15.3-44.8); MCH 31.9 pg (27.0-35.0); MCHC 34.5 g/dL (32.0-36.0); MCV 92.5 fL (80-100); MPV 10.3 fL (7.6-11.3); Monocytes % 16.5 % (3.3-12.3); Neutrophils % 74.5 % (41.7-73.7); Nucleated Red Blood Cells % 0.2 % (0-0); Platelets 303 thou/uL (152-406); RBC Red Blood Cell Count 5.21 M/uL (4.33-5.43); Red Cell Distribution Width 13.7 % (12.1-15.2)
[2024-07-06] MEDS: D5W 1,000 ML IV SCH (08:35)
[2024-07-06] MEDS: INSULIN REGULAR (HUMAN) 100 UNIT/ML SQ SCH ×2 (09:50→21:00)
[2024-07-06] MEDS: cloNIDine HCL 0.1 MG TAB PO ONE (12:51)
[2024-07-06 13:06] LABS: Blood Morphology Comment NOT SEEN (NOT SEEN); Platelet Estimate ADEQ; White Blood Cell Scan OK (OK)
[2024-07-06] MEDS: INSULIN 70/30 100 UNITS/ML SQ ONE (15:11)
[2024-07-06] MEDS: D5 0.45 NS 1,000 ML IV SCH (15:12)
[2024-07-06 21:03] LABS: Anion Gap 9.5 mEq/L (5.0-15.0); Potassium 3.5 mEq/L (3.5-5.1)
[2024-07-06] MEDS: POTASSIUM 25 MEQ EFFERV TAB PO ONE (21:58)
--- NOTE | 2024-07-07 09:43 | P.PN ---
Subjective Date of Service: 07/06/24 Chart has been reviewed. Patient admitted with hyperosmolar nonketotic syndrome. Patient's blood sugars are better. Overall, patient is now hypernatremic. Change IV fluids and continue monitoring electrolytes. Will increase activity anticipate discharge over the next 24 to 48 hours. Review of Systems 10-point ROS is otherwise unremarkable Physical Examination - Vital Signs Temperature: 98.0 F Blood Pressure: 136/81 Pulse: 95 Respirations: 16 Pulse Ox (%): 99 - Physical Exam General: Alert, In no apparent distress, Oriented x3 Respiratory: Clear to auscultation bilaterally, Normal air movement Cardiovascular: Regular rate/rhythm, Normal S1 S2, No murmurs Gastrointestinal: Normal bowel sounds, Soft and benign, Non-distended, No tenderness Musculoskeletal: No clubbing, No swelling, No tenderness Integumentary: No rashes Neurological: Sensation intact, Cranial nerves 3-12 intact - Studies Medications List Reviewed: Yes Assessment & Plan - Problems (Diagnosis) (1) Acute kidney injury Current Visit: Yes Status: Acute (2) Hypernatremia Current Visit: Yes Status: Acute (3) Hyperosmolar hyperglycemic state (HHS) Current Visit: Yes Status: Acute (4) Noncompliance Current Visit: Yes Status: Acute - Plan Plan: 1. Patient with hyperosmolar nonketotic syndrome; patient with severe hyperglycemia with blood sugars greater than 1000 initially. After IV hydration, patient is clinically doing better. Patient is more awake and alert. Patient's renal function are improved as well. Continue monitoring electrolytes and renal function closely. 2. Type 2 diabetes; resume hypoglycemic agents along with insulin. Check hemoglobin A1c level as well. Patient needs more compliance with his blood sugar monitoring 3. ISAIAS; continue with IV fluids and monitor renal function closely 4. Generalized weakness; bed and ambulate. If patient continues to do well then anticipate discharge in a.m. 5. GI DVT prophylaxis Discharge Plan: Home Plan to discharge in: Greater than 2 days - Advance Directives Does patient have a Living Will: No Does patient have a Durable POA for Healthcare: No - Code Status/Comfort Care Code Status Assessed: Yes Code Status: Full Code Critical Care: Yes Time Spent Managing PTS Care (In Minutes): 50
[2024-07-07] MEDS: FLUCONAZOLE 200mg IVPB 200 MG/100 ML BAG IV SCH (12:00)
[2024-07-07] MEDS: INSULIN REGULAR (HUMAN) 100 UNIT/ML SQ SCH (12:31)
[2024-07-07] MEDS: NYSTATIN 500,000 UNIT/5 ML UDC PO SCH ×2 (13:16→17:15)
[2024-07-07 13:49] LABS: Absolute Basophils 0.1 K/uL (0-0.5); Absolute Eosinophils 0.4 K/uL (0-0.5); Absolute Lymphocytes (CBC) 2.4 K/uL (0.7-4.9); Absolute Monocytes 1.3 K/uL (0.1-1.3); Absolute Neutrophil 10.1 K/uL (1.8-8.0); Basophils % 0.4 % (0-1.3); Eosinophils % 2.5 % (0-4.4); Hematocrit 40.4 % (39.6-49.0); Hemoglobin 13.7 g/dL (13.6-17.9); Lymphocytes % 16.7 % (15.3-44.8); MCH 31.9 pg (27.0-35.0); MCHC 33.9 g/dL (32.0-36.0); MCV 94.1 fL (80-100); MPV 9.1 fL (7.6-11.3); Neutrophils % 71.4 % (41.7-73.7); Nucleated Red Blood Cells % 0.1 % (0-0); Platelets 252 thou/uL (152-406); RBC Red Blood Cell Count 4.29 M/uL (4.33-5.43); Red Cell Distribution Width 13.7 % (12.1-15.2)
[2024-07-07] MEDS: METOPROLOL TAR 25 MG TAB PO ONE (15:42)
--- NOTE | 2024-07-07 17:51 | P.PN ---
Date of Service: 07/07/24 Subjective Date of Service: 07/06/24 Chart has been reviewed. Patient admitted with hyperosmolar nonketotic syndrome. Patient's blood sugars are better. Overall, patient is now hypernatremic. Change IV fluids and continue monitoring electrolytes. Will increase activity anticipate discharge over the next 24 to 48 hours. Review of Systems 10-point ROS is otherwise unremarkable Physical Examination - Vital Signs reviewed - Physical Exam General: Alert, In no apparent distress, Oriented x3 Respiratory: Clear to auscultation bilaterally, Normal air movement Cardiovascular: Regular rate/rhythm, Normal S1 S2, No murmurs Gastrointestinal: Normal bowel sounds, Soft and benign, Non-distended, No tenderness Musculoskeletal: No clubbing, No swelling, No tenderness Integumentary: No rashes Neurological: Sensation intact, Cranial nerves 3-12 intact - Studies Medications List Reviewed: Yes Assessment & Plan - Problems (Diagnosis) (1) Acute kidney injury Current Visit: Yes Status: Acute (2) Hypernatremia Current Visit: Yes Status: Acute (3) Hyperosmolar hyperglycemic state (HHS) Current Visit: Yes Status: Acute (4) Oropharyngeal candidiasis Current Visit: Yes Status: Acute - Plan Plan: 1. Patient with hyperosmolar nonketotic syndrome; patient with severe hyperglycemia with blood sugars greater than 1000 initially. After IV hydration, patient is clinically doing better. Patient is more awake and alert. Patient's renal function are improved as well. Continue monitoring electrolytes and renal function closely. 2. Type 2 diabetes; resume hypoglycemic agents along with insulin. Check hemoglobin A1c level as well. Patient needs more compliance with his blood sugar monitoring 3. ISAIAS; continue with IV fluids and monitor renal function closely 4. Generalized weakness; bed and ambulate. If patient continues to do well then anticipate discharge in a.m. 5. GI DVT prophylaxis Discharge Plan: Home Plan to discharge in: Greater than 2 days - Advance Directives Does patient have a Living Will: No Does patient have a Durable POA for Healthcare: No - Code Status/Comfort Care Code Status Assessed: Yes Code Status: Full Code Critical Care: Yes Time Spent Managing PTS Care (In Minutes): 50
[2024-07-07] MEDS: METOPROLOL TAR 25 MG TAB PO SCH (19:15)
[2024-07-07 21:18] LABS: Hepatitis B surface AG Interp. Nonreactive (Nonreactive)
[2024-07-07 21:19] LABS: HBsAG Nonreactive Report Report
[2024-07-08 06:43] LABS: Absolute Eosinophils 0.2 K/uL (0-0.5); Absolute Lymphocytes (CBC) 1.9 K/uL (0.7-4.9); Absolute Monocytes 1.1 K/uL (0.1-1.3); Absolute Neutrophil 6.6 K/uL (1.8-8.0); Basophils % 0.1 % (0-1.3); Eosinophils % 2.5 % (0-4.4); Hematocrit 39.3 % (39.6-49.0); Hemoglobin 13.4 g/dL (13.6-17.9); Lymphocytes % 19.1 % (15.3-44.8); MCH 32.3 pg (27.0-35.0); MCHC 34.2 g/dL (32.0-36.0); MCV 94.6 fL (80-100); MPV 9.1 fL (7.6-11.3); Monocytes % 11.4 % (3.3-12.3); Neutrophils % 66.9 % (41.7-73.7); Platelets 279 thou/uL (152-406); RBC Red Blood Cell Count 4.16 M/uL (4.33-5.43); Red Cell Distribution Width 13.4 % (12.1-15.2)
[2024-07-08 06:56] LABS: Anion Gap 9.9 mEq/L (5.0-15.0); Potassium 3.9 mEq/L (3.5-5.1)
[2024-07-08 08:46] VITALS: BP 146/76; TEMP 98
--- NOTE | 2024-07-08 09:32 | P.DS ---
Discharge Date: 07/08/24 Disposition: ROUTINE DISCHARGE Discharge Condition: GOOD Reason for Admission: Hyperosmolar hyperglycemia - Problems (1) Acute kidney injury Current Visit: Yes Status: Acute (2) Hypernatremia Current Visit: Yes Status: Acute (3) Hyperosmolar hyperglycemic state (HHS) Current Visit: Yes Status: Acute (4) Noncompliance Current Visit: Yes Status: Acute Brief History of Present Illness: Patient is a 38-year-old gentleman came to the hospital with intractable nausea and vomiting. Patient works as a [employer] Department and he has been losing quite a bit of weight. Patient's blood sugars were greater than the thousand. Patient was treated for hyperosmolar nonketotic syndrome. Patient's blood sugars are improved with aggressive IV hydration. On further examination, patient had thrush. Patient appears to have oropharyngeal candidiasis and it may extend to esophageal candidiasis. My concern is that he may have acquired a condition that has weakened his immune system. Labs have been sent off for hepatitis panel and HIV. Will get this later in the week and I will call the patient and notify him. Hospital Course: Patient doing better after we started Diflucan and nystatin. He is tolerating diet. I have asked him to call me in the next 3 to 4 days to get lab results regarding his hepatitis B and his HIV status. At this time, patient is clinically doing well and he is stable for discharge. He is to be more compliant with his blood sugar management and we addressed this with him. Once he starts taking his medications he should be able to start gaining weight again. He was advised to follow-up with GI, and to eat a full liquid diet over the next week and then advance to soft foods. He understands he needs to follow- up with GI, and I will work with him to get him to GI as an outpatient. Right now he is doing well and he will be discharged. I did speak with his father and his mother who are at bedside assisting with him. At this time patient stable for discharge home. Vital Signs/Physical Exam: Temp Pulse Resp BP Pulse Ox 98.0 F 87 20 146/76 H 99 07/08/24 08:00 07/08/24 08:00 07/08/24 08:00 07/08/24 08:00 07/08/24 08:00 General: Alert, In no apparent distress, Oriented x3 Laboratory Data at Discharge: WBC 9.90 thou/uL (4.3-10.9) 07/08/24 05:41 Hgb 13.4 g/dL (13.6-17.9) L 07/08/24 05:41 Hct 39.3 % (39.6-49.0) L 07/08/24 05:41 Plt Count 279 thou/uL (152-406) 07/08/24 05:41 PT 10.8 SECONDS (9.4-12.5) 07/05/24 19:30 INR 1.03 07/05/24 19:30 APTT 26.4 SECONDS (24.3-36.9) 07/05/24 19:30 Sodium 139 mEq/L (136-145) 07/08/24 05:41 Potassium 3.9 mEq/L (3.5-5.1) 07/08/24 05:41 BUN 21 mg/dL (7-18) H 07/08/24 05:41 Creatinine 0.94 mg/dL (0.70-1.30) 07/08/24 05:41 Glucose 268 mg/dL (74-106) H 07/08/24 05:41 Magnesium 3.2 mg/dL (1.6-2.4) H 07/05/24 19:30 Total Bilirubin 0.6 mg/dL (0.2-1.0) 07/06/24 01:03 AST 31 U/L (15-37) 07/06/24 01:03 ALT 28 U/L (16-61) 07/06/24 01:03 Alkaline Phosphatase 105 U/L (45-117) 07/06/24 01:03 Home Medications: Fluconazole [Diflucan] 200 mg PO DAILY #14 tab 07/07/24 Insulin Regular, Human [Novolin R] See Protocol SQ AC #2 vial 07/07/24 Lisinopril [Zestril] 10 mg PO DAILY #30 tab 07/07/24 Metformin HCl [Glucophage*] 500 mg PO BIDWM #60 tab 07/07/24 Metoprolol Tartrate 25 mg PO BID #60 tab 07/07/24 Nystatin 5 ml PO Q6H #500 ml 07/07/24 Sitagliptin Phosphate [Januvia] 50 mg PO DAILY #30 tab 07/07/24 Insulin Glargine,Hum.rec.anlog [Lantus] 20 unit SQ BEDTIME #2 vial 07/08/24 New Medications: Fluconazole [Diflucan] 200 mg PO DAILY #14 tab Metformin HCl [Glucophage*] 500 mg PO BIDWM #60 tab Sitagliptin Phosphate [Januvia] 50 mg PO DAILY #30 tab Insulin Glargine,Hum.rec.anlog [Lantus] 20 unit SQ BEDTIME #2 vial Metoprolol Tartrate 25 mg PO BID #60 tab Insulin Regular, Human [Novolin R] See Protocol SQ AC #2 vial Nystatin 5 ml PO Q6H #500 ml Lisinopril [Zestril] 10 mg PO DAILY #30 tab Physician Discharge Instructions: -DC IV and DC home -Follow-up with PCP in 1 to 2 weeks -Follow-up with launderer hand to assist with diabetic management -Please call Dr. Dubon at [phone] if any questions regarding hospital stay -Please call nursing station at [phone] if any nursing or medication questions -Return to the emergency room if symptoms worsen -Please call me at the above number in 1 week regarding additional lab work-up. Diet: ADA Activity: Fall precautions Followup: NONE,NONE [Primary Care Provider] - Time spent managing pt's care (in minutes): 35
[2024-07-08] MEDS: INSULIN GLARGINE 100 UNIT/ML SQ SCH (09:33)
[2024-07-08] MEDS: INSULIN REGULAR (HUMAN) 100 UNIT/ML SQ SCH (09:34)
[2024-07-08] MEDS ORDERED: LOPERAMIDE HCL 2 MG CAPSULE PO PRN ×2 (10:34→10:43)
[2024-07-08 11:16] LABS: Hepatitis B Core IgM Nonreactive (Nonreactive); Hepatitis C Virus Ab Nonreactive (Nonreactive)
[2024-07-08] MEDS ORDERED: DOXYCYCLINE 100 MG CAP PO SCH (21:00)
[2024-07-08] MEDS ORDERED: CEFUROXIME 250 MG TAB PO SCH (21:00)
--- NOTE | 2024-07-10 12:45 | EKG ---
Test Date: 2024-07-05 Test Time: 19:39:15 Hand Counter: MEASUREMENT RESULTS: Intervals: Rate: 126 [place]: 118 QRSD: 74 QT: 326 QTc: 472 [place]: P: 62 [place]: 118 QRS: 63 T: -27 INTERPRETIVE STATEMENTS: Sinus tachycardia T wave abnormality, consider inferior ischemia T wave abnormality, consider anterior ischemia Abnormal ECG No previous ECG available for comparison Electronically Signed On 07-10-24 12:37:03 [employer] by Marcel Small
== END 2024-07-08 12:40 | disposition home or self-care (01) | DRG 638 ==
LOC: ER 18:56 → ERHOLD 20:42 → 3RD-ICU 23:39 → 2ND 07-07 22:40
PROVIDERS: ADMIT Internal Medicine Sleep Medicine; ATTEND Internal Medicine
DX: E11.00 Type 2 diabetes mellitus with hyperosmolarity without nonketotic hyperglycemic-hyperosmolar coma (NKHHC) (principal); B37.89 Other sites of candidiasis; N17.9 Acute kidney failure, unspecified; E87.0 Hyperosmolality and hypernatremia; E86.0 Dehydration; E87.5 Hyperkalemia; I10 Essential (primary) hypertension; T38.3X6A Underdosing of insulin and oral hypoglycemic [antidiabetic] drugs, initial encounter; Z79.4 Long term (current) use of insulin; Z79.84 Long term (current) use of oral hypoglycemic drugs; Z79.899 Other long term (current) drug therapy; Z91.128 Patient's intentional underdosing of medication regimen for other reason; Z91.148 Patient's other noncompliance with medication regimen for other reason; Z11.52 Encounter for screening for COVID-19
CPT/HCPCS: 36415; 71045; 80048; 80053; 80074; 80076; 81001; 82010; 82947; 83036; 83735; 83930; 83935; 84300; 84484; 85025; 85610; 85730; 87040; 87389; 87804; 87811; 93005; 96361; 96365; 96366; 96375; 99285; J0696; J1450; J1815; J2405; J7030; J7799